=== PATIENT | male | born 1965 | race Caucasian/White ===

== ENCOUNTER 2017-12-14 16:26 | Emergency (ER) | payer BC ==
[~2017-12-14] VITALS: Ht 177.8 cm; Wt 109.5 kg
[2017-12-14] MEDS ORDERED: pantoprazole 40 MG vial IV ONE (17:50)
[2017-12-14] MEDS ORDERED: ondansetron/PF 4mg/2ml inj IV ONE (17:50)
[2017-12-14] MEDS ORDERED: normal saline 1000ML IV soln IVB ONE (17:50)
[2017-12-14 18:16] LABS: BASOPHILS % (AUTO) 0.3 % (0-1); EOSINOPHILS # (AUTO) 0.1 X10'3 (0-0.9); EOSINOPHILS % (AUTO) 1.2 % (0-6); HEMOGLOBIN 16.7 g/dl (14.0-17.9); LYMPHOCYTES # (AUTO) 1.7 X10'3 (1.1-4.8); MEAN CORPUSCULAR HEMOGLOBIN 33.3 PG (27.0-31.0); MEAN CORPUSCULAR VOLUME 98.1 FL (78-98); MEAN PLATELET VOLUME 7.6 FL (7.4-10.4); MONOCYTES # (AUTO) 0.8 X10'3 (0-0.9); MONOCYTES % (AUTO) 10.2 % (2-12); NEUTROPHILS # (AUTO) 5.4 X10'3 (1.8-7.7); NEUTROPHILS % (AUTO) 67.3 % (42-75); PLATELET COUNT 251 X10'3 (140-440); RED CELL DISTRIBUTION WIDTH 14.3 % (11.5-14.5)
[2017-12-14 18:27] LABS: PARTIAL THROMBOPLASTIN TIME 26 SECONDS (22-32); PROTHROMBIN TIME 10.5 SECONDS (9.0-12.0)
[2017-12-14 18:33] LABS: ALANINE AMINOTRANSFERASE 53 U/L (12-78); ALBUMIN/GLOBULIN RATIO 1.1 (1.1-1.5); ALKALINE PHOSPHATASE 70 IU/L (46-116); ANION GAP 12 (8-16); ASPARTATE AMINO TRANSFERASE 28 U/L (10-37); BILIRUBIN,TOTAL 0.9 MG/DL (0.1-1.0); BLOOD UREA NITROGEN 9 MG/DL (7-18); BUN/CREATININE RATIO 9.1 (5.4-32.0); CHLORIDE 101 MMOL/L (99-107); CREATININE 0.99 MG/DL (0.60-1.10); GLUCOSE 108 MG/DL (70-104); LIPASE 162 U/L (73-393); POTASSIUM 3.7 MMOL/L (3.5-5.1); SODIUM 138 MMOL/L (135-145); TOTAL CARBON DIOXIDE 25.5 MMOL/L (24-32); TOTAL PROTEIN 7.8 G/DL (6.4-8.2); eGFR 79 ML/MIN
[2017-12-14 18:37] LABS: CALCIUM 9.3 MG/DL (8.5-10.1)
[2017-12-14 18:59] LABS: CLARITY,URINE CLEAR (Clear); COLOR,URINE YELLOW (Yellow); GLUCOSE, URINE NEGATIVE (Neg); KETONES,URINE NEGATIVE (Neg); LEUKOCYTE ESTERASE ,URINE NEGATIVE (Neg); NITRITES, URINE NEGATIVE (Neg); OCCULT BLOOD,URINE NEGATIVE (Neg); PROTEIN,URINE NEGATIVE (Neg); UROBILINOGEN,URINE 0.2 E.U/dL (0.2-1.0)
[2017-12-14 19:01] LABS: UA COLLECTION TYPE CLN CATCH MIDSTREAM
[2017-12-14] MEDS ORDERED: mag hydrox/Alum hydrox/simeth 30ml oral suspension PO ONE (19:35)
[2017-12-14] MEDS ORDERED: LIDOcaine Viscous 15ml cup PO ONE (19:35)
[2017-12-14] MEDS: famotidine/PF 10 mg/ml inj IV ONE ×2 (19:48→20:11)
[2017-12-14 20:16] VITALS: BP 140/93
[2017-12-14] MEDS ORDERED: ONDA4TAB9 PO (21:05)
[2017-12-14] MEDS ORDERED: PANT-47 PO (21:05)
== END 2017-12-14 21:26 | disposition home or self-care (01) ==
LOC: ER 16:30
DX: E86.0 Dehydration (principal); F17.210 Nicotine dependence, cigarettes, uncomplicated; R79.1 Abnormal coagulation profile; Z88.8 Allergy status to other drugs, medicaments and biological substances
CPT/HCPCS: 36415; 80053; 81003; 83690; 85025; 85610; 85730; 96361; 96374; 96375; 99285; C9113; J2405; J3490; J7030

== ENCOUNTER 2024-03-29 11:30 | Inpatient (IN) | payer BC, OTHER ==
[~2024-03-29] VITALS: Ht 180.3 cm; Wt 122.0 kg
[~2024-03-29 11:30] MED LIST: PANT-47 PO
[2024-03-29 19:46] VITALS: BP 143/87; PULSE 79; RESP 14; TEMP 97.9; O2SAT 98
[2024-03-29] MEDS ORDERED: LISI20TA28 PO (20:12)
[2024-03-29] MEDS ORDERED: mounjaro SQ (20:12)
[2024-03-29] MEDS ORDERED: LOP25T PO (20:12)
[2024-03-29] MEDS ORDERED: MONT-40 PO (20:12)
[2024-03-29] MEDS ORDERED: mag hydrox/Alum hydrox/simeth 30ml oral suspension PO PRN (20:35)
[2024-03-29] MEDS ORDERED: magnesium hydroxide 30ml (MOM) UD suspension PO PRN (20:35)
[2024-03-29] MEDS ORDERED: acetaminophen 325mg tablet PO PRN ×2 (20:35)
[2024-03-29] MEDS ORDERED: traZODone 50mg tablet PO PRN (21:05)
[2024-03-29] MEDS: MOUNJARO 15 MG/0.5 ML SQ SCH (21:15)
[2024-03-29] MEDS: traZODone 50mg tablet PO SCH (21:50)
[2024-03-29] MEDS: loperamide 2mg capsule PO PRN (23:26)
[2024-03-30 07:30] VITALS: BP 105/63; PULSE 80; RESP 18; TEMP 97.8; O2SAT 97
[2024-03-30] MEDS: lisinopril 20mg tablet PO SCH (07:34)
[2024-03-30] MEDS: montelukast 10mg tablet PO SCH (07:34)
[2024-03-30] MEDS: metoprolol tartrate 25mg tablet PO SCH (07:34)
[2024-03-30 19:00] VITALS: RESP 18; O2SAT 96
[2024-03-30 20:00] VITALS: BP 136/98; PULSE 84; RESP 18; TEMP 98.5; O2SAT 96
[2024-03-30] MEDS: QUEtiapine 25mg tablet PO ONE (21:00)
[2024-03-30] MEDS: thiamine 100mg tablet PO SCH (21:01)
[2024-03-31 07:00] VITALS: RESP 16; O2SAT 96
[2024-03-31] MEDS: multivitamins, therapeutics tablet PO SCH (07:42)
[2024-03-31] MEDS: folic acid 1mg tablet PO SCH (07:42)
[2024-03-31] MEDS: pantoprazole 40mg Tablet.DR PO SCH (07:42)
[2024-03-31] MEDS: aspirin 81mg tab.chew PO SCH (07:43)
[2024-03-31 08:00] VITALS: BP 136/98; PULSE 84; RESP 18; TEMP 98.5; O2SAT 96
[2024-03-31] MEDS ORDERED: thiamine tablet PO (08:51)
[2024-03-31] MEDS ORDERED: FOLI1TAB27 PO (08:51)
[2024-03-31] MEDS ORDERED: MULT-25 PO (08:51)
[2024-03-31] MEDS ORDERED: NALT50TA5 PO (08:51)
[2024-03-31] MEDS ORDERED: PANT40TA54 PO (08:51)
[2024-03-31] MEDS: naltrexone 50mg tablet PO ONE (12:30)
[2024-04-01] MEDS ORDERED: naltrexone 50mg tablet PO SCH (08:00)
== END 2024-03-31 15:09 | disposition home or self-care (01) | DRG 881 ==
LOC: ADULT MH 11:30 → UNDOADMIN 19:06 → ADULT MH 19:06
PROVIDERS: ADMIT Psychiatry & Neurology Psychiatry; ATTEND Psychiatry & Neurology Psychiatry
DX: F32.A Depression, unspecified (principal); T42.6X1A Poisoning by other antiepileptic and sedative-hypnotic drugs, accidental (unintentional), initial encounter; F41.9 Anxiety disorder, unspecified; G47.00 Insomnia, unspecified; I10 Essential (primary) hypertension; E66.01 Morbid (severe) obesity due to excess calories; E11.9 Type 2 diabetes mellitus without complications; F10.20 Alcohol dependence, uncomplicated; I25.10 Atherosclerotic heart disease of native coronary artery without angina pectoris; Z88.2 Allergy status to sulfonamides; Z88.1 Allergy status to other antibiotic agents; Y92.89 Other specified places as the place of occurrence of the external cause; Z88.0 Allergy status to penicillin; Z95.1 Presence of aortocoronary bypass graft; Z87.01 Personal history of pneumonia (recurrent); Z68.37 Body mass index [BMI] 37.0-37.9, adult
CPT/HCPCS: 36415; 83721; 87081